=== PATIENT | female | born 1975 | race Caucasian/White ===

== ENCOUNTER 2021-01-04 23:54 | Emergency (ER) | payer MEDICAID, OTHER ==
[~2021-01-04] VITALS: Ht 165.1 cm; Wt 103.7 kg
[2021-01-04 23:58] VITALS: BP 158/108
--- NOTE | 2021-01-05 00:59 | NUR ---
PT STATES SHE HAS H/A, FEVER (RELIEVED C TYL TODAY) 7 SORE THROAT X TODAY, NAUSEA & RASH X 2 DAYS. PT STATES SHE WAS AT [place] 3 DAYS AGO. DENIES ANY OTHER FAMILY MEMBERS FEELING ILL. AMBULATORY TO RESTROOM C STEADY GAIT.
[2021-01-05] MEDS ORDERED: DIPHENHYDRAMINE 25 MG CAPSULE PO ONE (01:00)
[2021-01-05] MEDS ORDERED: KETOROLAC 30 MG/1 ML IM ONE (01:00)
[2021-01-05 01:04] LABS: BASOPHILS % (AUTO) 1 % (0-1); EOSINOPHILS % (AUTO) 2 % (1-7); LYMPHOCYTES % (AUTO) 29 % (22-44); MEAN CORPUSCULAR HEMOGLOBIN 29.4 pg (27.0-34.8); MEAN CORPUSCULAR HGB CONC 32.9 g/dL (32.4-35.8); MEAN PLATELET VOLUME 9.3 fL (7.4-10.4); MONOCYTES % (AUTO) 8 % (2-9); NEUTROPHILS % (AUTO) 61 % (42-75); PLATELET COUNT 231 x10^3/uL (130-400); RED BLOOD COUNT 4.48 x10^6/uL (3.82-5.3)
[2021-01-05 01:13] LABS: ALBUMIN 3.7 g/dL (3.4-5.0); ANION GAP 4 mmol/L (5-15); CALCIUM 9.2 mg/dL (8.5-10.1); CHLORIDE 107 mmol/L (98-107); CREATININE 0.88 mg/dL (0.55-1.02)
[2021-01-05] MEDS ORDERED: DIPHENHYDRAMINE 50 MG CAPSULE ONE (01:34)
[2021-01-05] MEDS ORDERED: KETOROLAC 30 MG/1 ML ONE (01:34)
--- NOTE | 2021-01-05 01:59 | NUR ---
MEDS PER MAR. CALL LIGHT INREACH. GIVEN A BLANKET. DENIES ANY NEEDS. WILL CTM.
== END 2021-01-05 02:35 | disposition home or self-care (01) ==
LOC: ED 01-05 02:00
DX: R51.9 Headache, unspecified (principal); J02.8 Acute pharyngitis due to other specified organisms; B97.89 Other viral agents as the cause of diseases classified elsewhere; Z20.822 Contact with and (suspected) exposure to COVID-19; M06.9 Rheumatoid arthritis, unspecified
CPT/HCPCS: 36415; 71045; 80048; 82040; 85025; 87635; 96372; 99284; J1885; Q0163